=== PATIENT | female | born 1960 | race Caucasian/White ===

== ENCOUNTER 2023-10-24 09:33 | Outpatient (AMB) | payer BC, SELFPAY ==
[2023-10-24 11:05] VITALS: BP 160/90; PULSE 69; TEMP 36.2; O2SAT 97; BMI 43.6
--- NOTE | 2023-10-24 11:05 | MHC.OFFWIV ---
Intake Vital Signs 10/24/23 11:05 Height 5 ft 6 in Weight 122.47 kg BMI 43.6 BP 160/90 H Blood Pressure Location Lt brachial Position Sitting Pulse 69 Pulse Source Pulse Oximeter Temp 97.2 F Temp Source Temporal Artery Scan Pulse Oximetry (%) 97 Oxygen Delivery Method Room Air Intake Visit Reasons: EST/fell/right shoulder pain (lobby) Intake Note: pt is here today for fell rt shoulder started tuesday Patient Tobacco Use Status: Current everyday Tobacco user Allergies No Known Allergies Allergy (Verified 10/24/23 11:07) Do you need a note to return to daycare/school/sports/work: No HPI HPI Comments History of Present Illness Details 1119 63-year-old female presents status post trip and fall on Tuesday, now having left shoulder pain. Patient reports she was sleeping on a couch, got up to walk to her room and go to bed and she tripped, falling onto her left shoulder, she reports she bumped her head however no loss of consciousness. She reports what is hurting her the most is her left shoulder. She has not on blood thinners. She reports difficulty with range of motion of left shoulder. Denies numbness, tingling, wrist drop, previous issues with the shoulder, headache, vision changes, dizziness, weakness. Physical exam with limited range of motion to left shoulder secondary to pain. Patient barely able to shrug her shoulders. She is holding her left shoulder abducted to her body and supporting it with her other arm. Normal hand retail field representative bilaterally. 2+ radial pulses equal bilateral. Capillary refill less than 2 seconds to bilateral upper extremity digits. Normal sensation distally. Pain with palpation of left distal clavicle. Normal right shoulder with normal range of motion and neurovascular status. Normal dswldn-so-zhuj, kqyk-ue-wssf steady tandem gait normal coordination. NIH stroke scale 0. Will rule out shoulder fracture, dislocation. No signs of neurovascular compromise or threat to limb. No signs of traumatic injury to head, neck, chest, abdomen or pelvis. Unlikely stroke posterior stroke negative NIH stroke scale. Plan imaging will place her in a left shoulder sling advised her to not sleep with a sling. Educated on ibuprofen every 6 hours Tylenol every 4 as needed for pain or discomfort. Will also given Orthopedic consult. Educated patient on diagnosis and treatment plan, answered all question, patient verbalizes understanding. At this time patient will be discharged home, advised to return with new or worsening symptoms. Educated on worrisome signs and symptoms and when to return. At this time I feel comfortable discharge home. [place] head CT score negative no indication for CT scan at this time. [facility] Social History Patient Tobacco Use Status: Current everyday Tobacco user Review of Systems Const All systems reviewed & are unremarkable except as noted in HPI and below Physical Exam Vital Signs: Last Vital Signs Temp 97.2 F 10/24/23 11:05 Pulse 69 10/24/23 11:05 BP 160/90 H 10/24/23 11:05 Pulse Ox 97 10/24/23 11:05 Oxygen Delivery Method Room Air 10/24/23 11:05 BMI result Body Mass Index 43.6 Vital signs stable Appearance: Alert.? Oriented X3.? No acute distress.? Head: Normocephalic, atraumatic, no step-offs or deformities Eyes: Pupils equal, round and reactive to light.? Neck: Normal inspection.? Neck supple.? CVS: Normal heart rate and rhythm.? Pulses normal.? Respiratory: No respiratory distress.? Breath sounds normal.? Abdomen: Soft and nontender.? Skin: Skin warm and dry.? Normal skin color.? Normal skin turgor.? Extremities: No lower extremity edema.? No calf ttp. 5/5 strength to bilateral upper and lower extremities limited range of motion to left shoulder secondary to pain. Patient barely able to shrug her shoulders. She is holding her left shoulder abducted to her body and supporting it with her other arm. Normal hand retail field representative bilaterally. 2+ radial pulses equal bilateral. Capillary refill less than 2 seconds to bilateral upper extremity digits. Normal sensation distally. Pain with palpation of left distal clavicle. Neuro: Oriented X 3.? No motor deficit.? No sensory deficit. CN 2-12 intact . Normal hkcesp-ot-mdib, rebk-vn-pbqc steady tandem gait normal coordination Assessment & Plan Assessment & Plan (1) Shoulder pain: Code(s): M25.519 - Pain in unspecified shoulder (2) Fall: Code(s): W19.XXXA - Unspecified fall, initial encounter (3) Concussion: Code(s): S06.0XAA - Concussion with loss of consciousness status unknown, initial encounter Plan Take your medications as prescribed. If you were prescribed antibiotics today, it is important that you take your medication to their entirety, do not skip any doses, do not finish them early. Follow-up with your primary care provider this week. Return to the emergency department with new or worsening symptoms. Such as fevers, chills, chest pain, shortness of breath, nausea, vomiting, dizziness, headache, vision changes, lethargy In case of emergency call 911 Orders: Orders XR shoulder LT min 2V Today M25.512 - Pain in left shoulder Referrals Orthopedics Referral M25.519 - Pain in unspecified shoulder Coding Level of Care Code Est Pt Level 3 (44836) Diagnoses Shoulder pain M25.519 Fall W19.XXXA Concussion S06.0XAA
== END 2023-10-24 11:47 | disposition home or self-care (01) ==
PROVIDERS: PCP Internal Medicine; Visit Provider Physician Assistant
DX: M25.519 Pain in unspecified shoulder (principal); W19.XXXA Unspecified fall, initial encounter; S06.0XAA Concussion with loss of consciousness status unknown, initial encounter
CPT/HCPCS: 99213

== ENCOUNTER 2023-10-24 11:30 | Outpatient (REF) | payer BC, SELFPAY ==
--- NOTE | ~2023-10-24 | XR_ITS ---
EXAMINATION: XR SHOULDER, LEFT CLINICAL INFORMATION: Left shoulder pain. COMPARISON: None available. TECHNIQUE: 3 views of the left shoulder. FINDINGS: Mild glenohumeral osteophytes with marginal osteophytes. Mild joint space narrowing. More [id number] acromioclavicular osteoarthritis. No fracture or malalignment. Bones are osteopenic. Soft tissues are unremarkable. 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 No acute osseous findings.
== END 2023-10-24 11:31 | disposition home or self-care (01) ==
LOC: HO.HMGCX 11:30
PROVIDERS: Visit Provider Physician Assistant
DX: M25.512 Pain in left shoulder (principal)
CPT/HCPCS: 73030